=== PATIENT | male | born 1975 | race Caucasian/White ===

== ENCOUNTER 2017-04-29 18:21 | Emergency (ER) | payer MEDICAID, OTHER ==
[~2017-04-29] VITALS: Ht 162.6 cm; Wt 72.0 kg
[~2017-04-29 18:21] MED LIST: BACTDS PO; CEPH500C PO; DOCU-144 PO; TRAM-40 PO
[2017-04-29 18:27] VITALS: Ht 162.6 cm; Wt 72.0 kg
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
[2017-04-29] MEDS ORDERED: IBUPROFEN 200 MG TAB PO ONE (19:30)
--- NOTE | 2017-04-29 21:32 | RADRPT ---
PROCEDURE: Ultrasound of the right lower extremity CLINICAL INDICATION: Injury. Pain.. TECHNIQUE: Limited ultrasound survey of the anterior right lower extremity was performed. COMPARISON: None. FINDINGS: Localized soft tissue swelling is identified. There is no focal collection to suggest a hematoma or abscess. IMPRESSION: Soft tissue swelling compatible with edema. No evidence for a subcutaneous abscess or hematoma. RPTAT: HMVK .Margarito Henry MD, Date Time Electronically viewed and signed by .Margarito Henry MD, on 04/29/2017 21:31 .K/
--- NOTE | 2017-04-29 21:50 | RADRPT ---
PROCEDURE: XR Tibia and Fibula. CLINICAL INDICATION: Pain. TECHNIQUE: AP and lateral views of the right tibia and fibula. COMPARISON: None available. FINDINGS: No fracture or dislocation is identified. The joint spaces are unremarkable. There is no significa nt soft tissue swelling. IMPRESSION: 1. No fracture or dislocation of the right tibia and fibula. RPTAT: HTAR .Portillo Ng MD, MD Date Time Electronically viewed and signed by .Portillo Ng MD, on 04/29/2017 21:50 .R/
[2017-04-29] MEDS ORDERED: CLINDAMYCIN 600 MG INJ IM ONE (22:30)
[2017-04-29] MEDS ORDERED: CLIN-73 PO (22:46)
[2017-04-29] MEDS ORDERED: IBUP-1542 PO (22:46)
[2017-04-29 23:06] VITALS: BP 136/94; PULSE 61; RESP 18; TEMP 98
== END 2017-04-29 23:09 | disposition home or self-care (01) ==
LOC: FTE 18:21
DX: L03.115 Cellulitis of right lower limb (principal)
CPT/HCPCS: 73590; 76536; Z7610; 96372